=== PATIENT | female | born 1955 | race Caucasian/White ===

== ENCOUNTER 2017-05-01 13:29 | Emergency (ER) | payer OTHER ==
[~2017-05-01 13:29] MED LIST: AMLODIPINE BESYL5 M1 PO; ASPIR 8181 MG PO; COZAAR50 MG PO; HYDROCHLOROTH12.5 M2 PO; LIPI10 PO; LIPI20 PO; METFORMIN850 M1 PO; XARELTO20 M1 PO
[2017-05-01 15:51] LABS: BASOPHIL % 0.5 % (0-2); PLATELET COUNT 270 x10^3mcL (130-400); RED CELL DISTRIBUTION WIDTH 13.8 % (11.5-14.5)
[2017-05-01 15:59] LABS: CALCIUM 9.8 mg/dL (8.5-10.1); CARBON DIOXIDE 29.6 mmol/L (21-32); CHLORIDE SERUM 105 mmol/L (98-107); CREATININE SERUM 0.7 mg/dL (0.6-1.0); GFR1 > 60 mL/min; GLUCOSE SERUM 148 mg/dL (74-106); POTASSIUM SERUM 3.6 mmol/L (3.5-5.1); SODIUM SERUM 143 mmol/L (136-145)
[2017-05-01 16:05] LABS: ALBUMIN 3.7 g/dL (3.4-5.0); ALKALINE PHOSPHATASE 74 U/L (46-116); ALT/SGPT 31 U/L (14-59); AST/SGOT 15 U/L (15-37); BILIRUBIN TOTAL 0.3 mg/dL (0.20-1.00); TOTAL PROTEIN, SERUM 7.4 g/dL (6.4-8.2)
[2017-05-01 18:21] VITALS: BP 137/68
== END 2017-05-01 18:21 | disposition short-term general hospital (02) ==
LOC: ED 13:29
DX: S06.5X9A Traumatic subdural hemorrhage with loss of consciousness of unspecified duration, initial encounter (principal); I10 Essential (primary) hypertension; E11.9 Type 2 diabetes mellitus without complications; Z79.84 Long term (current) use of oral hypoglycemic drugs; X58.XXXA Exposure to other specified factors, initial encounter; Y93.89 Activity, other specified; Y99.8 Other external cause status; Y92.89 Other specified places as the place of occurrence of the external cause
CPT/HCPCS: 83880; J2405; J3010; J7030; Q0092

== ENCOUNTER 2017-06-04 13:56 | Inpatient (IN) | payer OTHER ==
[~2017-06-04] VITALS: Ht 167.6 cm; Wt 85.3 kg
[2017-06-04 15:09] LABS: BASOPHIL % 0.6 % (0-2); PLATELET COUNT 260 x10^3mcL (130-400); RED CELL DISTRIBUTION WIDTH 13.4 % (11.5-14.5)
[2017-06-04 15:58] LABS: CALCIUM 9.6 mg/dL (8.5-10.1); CARBON DIOXIDE 28.2 mmol/L (21-32); CHLORIDE SERUM 104 mmol/L (98-107); CREATININE SERUM 0.6 mg/dL (0.6-1.0); GFR1 > 60 mL/min; GLUCOSE SERUM 100 mg/dL (74-106); POTASSIUM SERUM 3.6 mmol/L (3.5-5.1); SODIUM SERUM 139 mmol/L (136-145)
[2017-06-04 16:03] LABS: ALBUMIN 3.4 g/dL (3.4-5.0); ALKALINE PHOSPHATASE 81 U/L (46-116); ALT/SGPT 27 U/L (14-59); AST/SGOT 13 U/L (15-37); BILIRUBIN TOTAL 0.21 mg/dL (0.20-1.00); TOTAL PROTEIN, SERUM 7.1 g/dL (6.4-8.2)
[2017-06-04 17:17] VITALS: BP 139/70
[2017-06-04 17:21] LABS: PHOSPHOROUS 3.6 mg/dL (2.5-4.9)
[2017-06-04 17:29] LABS: CHOLESTEROL/HDL RATIO 3.3
[2017-06-04 17:42] LABS: UA SPECIFIC GRAVITY <1.005 (1.005-1.035); microscopic required? YES
[2017-06-04 17:43] LABS: urine erythrocyte NEGATIVE (NEGATIVE)
[2017-06-04 18:24] LABS: FREE T4 1.02 ng/dL (0.76-1.46); FREE THYROXINE INDEX 2.8 ug/dL (1.4-4.5)
[2017-06-04 19:25] LABS: T3 TOTAL 1.13 ng/mL
[2017-06-04 21:06] VITALS: BP 138/73
[2017-06-05 05:33] VITALS: BP 130/60
[2017-06-05 06:12] LABS: BASOPHIL % 0.5 % (0-2); PLATELET COUNT 261 x10^3mcL (130-400); RED CELL DISTRIBUTION WIDTH 13.4 % (11.5-14.5)
[2017-06-05 07:06] LABS: CALCIUM 9.4 mg/dL (8.5-10.1); CARBON DIOXIDE 30.8 mmol/L (21-32); CHLORIDE SERUM 108 mmol/L (98-107); CREATININE SERUM 0.6 mg/dL (0.6-1.0); GFR1 > 60 mL/min; GLUCOSE SERUM 120 mg/dL (74-106); MAGNESIUM 1.9 mg/dL (1.8-2.4); PHOSPHOROUS 3.8 mg/dL (2.5-4.9); POTASSIUM SERUM 4.1 mmol/L (3.5-5.1); SODIUM SERUM 143 mmol/L (136-145)
[2017-06-05 09:26] VITALS: BP 137/73
[2017-06-05 13:42] VITALS: BP 140/80
[2017-06-05 17:11] VITALS: BP 132/69
[2017-06-05 21:35] VITALS: BP 132/64
[2017-06-06 05:17] VITALS: BP 123/58
[2017-06-06 09:25] VITALS: BP 141/71
[2017-06-06 12:40] VITALS: BP 147/85
[2017-06-06] MEDS ORDERED: LEVAQUIN750 MG PO ×2 (13:24→15:13)
[2017-06-06 14:22] VITALS: BP 147/85
[2017-06-06] MEDS ORDERED: COZ25 PO (14:26)
[2017-06-06] MEDS ORDERED: LAC PO ×2 (14:27→15:13)
[2017-06-06] MEDS ORDERED: NOR5 PO (14:27)
== END 2017-06-06 15:56 | disposition home or self-care (01) | DRG 69 ==
LOC: ED 13:56 → DU 15:52
PROVIDERS: Emergency Medicine; ADMIT Family Medicine
DX: G45.9 Transient cerebral ischemic attack, unspecified (principal); N39.0 Urinary tract infection, site not specified; I10 Essential (primary) hypertension; I48.91 Unspecified atrial fibrillation; E11.65 Type 2 diabetes mellitus with hyperglycemia; E78.1 Pure hyperglyceridemia; Z53.29 Procedure and treatment not carried out because of patient's decision for other reasons; D64.9 Anemia, unspecified; Z79.01 Long term (current) use of anticoagulants; Z79.84 Long term (current) use of oral hypoglycemic drugs; Z90.49 Acquired absence of other specified parts of digestive tract; Z79.899 Other long term (current) drug therapy; Z83.3 Family history of diabetes mellitus; Z82.49 Family history of ischemic heart disease and other diseases of the circulatory system
CPT/HCPCS: 83880; 84439; J0696; J7030; Q0092

== ENCOUNTER 2017-11-21 13:08 | Emergency (ER) | payer OTHER ==
[~2017-11-21] VITALS: Ht 170.2 cm; Wt 86.2 kg
[~2017-11-21 13:08] MED LIST changes: +COZ25 PO; +LAC PO; +LEVAQUIN750 MG PO; +NOR5 PO
[2017-11-21 13:47] VITALS: Ht 170.2 cm; Wt 86.2 kg
[2017-11-21 15:01] LABS: CALCIUM 9.4 mg/dL (8.5-10.1); CHLORIDE SERUM 102 mmol/L (98-107); CREATININE SERUM 0.7 mg/dL (0.6-1.0); GFR1 > 60 mL/min; GLUCOSE SERUM 121 mg/dL (74-106); POTASSIUM SERUM 3.6 mmol/L (3.5-5.1); SODIUM SERUM 139 mmol/L (136-145)
[2017-11-21 15:05] LABS: ALBUMIN 3.6 g/dL (3.4-5.0); ALKALINE PHOSPHATASE 73 U/L (46-116); ALT/SGPT 30 U/L (14-59); AST/SGOT 11 U/L (15-37); BASOPHIL % 0.7 % (0-2); BILIRUBIN TOTAL 0.2 mg/dL (0.20-1.00); PLATELET COUNT 268 x10^3mcL (130-400); RED CELL DISTRIBUTION WIDTH 14.1 % (11.5-14.5); TOTAL PROTEIN, SERUM 7.1 g/dL (6.4-8.2)
[2017-11-21 15:47] VITALS: BP 143/78
== END 2017-11-21 15:48 | disposition home or self-care (01) ==
LOC: ED 13:08
PROVIDERS: Emergency Medicine
DX: R51 Headache (principal); I10 Essential (primary) hypertension; E11.9 Type 2 diabetes mellitus without complications; I25.2 Old myocardial infarction; Z86.73 Personal history of transient ischemic attack (TIA), and cerebral infarction without residual deficits
CPT/HCPCS: 36415; J1885; Q0092

== ENCOUNTER 2018-11-27 03:14 | Inpatient (IN) | payer BC ==
[~2018-11-27] VITALS: Ht 167.6 cm; Wt 88.5 kg
[2018-11-27 04:13] LABS: microscopic required? NO
[2018-11-27 04:26] LABS: UA SPECIFIC GRAVITY <=1.005 (1.005-1.035); urine erythrocyte NEGATIVE (NEGATIVE)
[2018-11-27 04:45] LABS: BASOPHIL % 0.4 % (0-2); PLATELET COUNT 250 x10^3mcL (130-400); RED CELL DISTRIBUTION WIDTH 13.9 % (11.5-14.5)
[2018-11-27 05:43] LABS: CALCIUM 9.9 mg/dL (8.5-10.1); CARBON DIOXIDE 27.4 mmol/L (21-32); CHLORIDE SERUM 105 mmol/L (98-107); CREATININE SERUM 0.6 mg/dL (0.6-1.0); GFR1 > 60 mL/min; GLUCOSE SERUM 176 mg/dL (74-106); POTASSIUM SERUM 4.3 mmol/L (3.5-5.1); SODIUM SERUM 142 mmol/L (136-145)
[2018-11-27 05:55] LABS: ALBUMIN 2.8 g/dL (3.4-5.0); ALKALINE PHOSPHATASE 70 U/L (46-116); ALT/SGPT 31 U/L (14-59); AST/SGOT 19 U/L (15-37); BILIRUBIN TOTAL 0.54 mg/dL (0.20-1.00); FREE T4 1.28 ng/dL (0.76-1.46); LIPASE 76 IU/L (73-393); TOTAL PROTEIN, SERUM 6.8 g/dL (6.4-8.2)
[2018-11-27] MEDS ORDERED: GOOD SENSE ASP325 MG PO (07:00)
[2018-11-27] MEDS ORDERED: METFORMIN HCL500 MG PO (07:01)
[2018-11-27] MEDS ORDERED: OXYCODONE HCL10 MG PO (07:01)
[2018-11-27] MEDS ORDERED: COLACE100 MG PO (07:03)
[2018-11-27] MEDS ORDERED: OYSCO 500-VIT1 EACH PO (07:03)
[2018-11-27] MEDS ORDERED: TRAMADOL HCL50 MG PO (07:03)
[2018-11-27] MEDS ORDERED: VITAMIN D32000 I2 PO (07:04)
[2018-11-27] MEDS ORDERED: NOR10 PO (07:04)
[2018-11-27] MEDS ORDERED: COZAAR100 MG PO (07:04)
[2018-11-27 14:50] LABS: PHOSPHOROUS 3.1 mg/dL (2.5-4.9)
[2018-11-27 14:52] LABS: CHOLESTEROL/HDL RATIO 4.5
[2018-11-27 15:19] VITALS: BP 126/62
[2018-11-27 20:00] VITALS: BP 115/67
[2018-11-27 23:59] VITALS: BP 134/63
[2018-11-28 05:36] LABS: BASOPHIL % 0.4 % (0-2); PLATELET COUNT 246 x10^3mcL (130-400); RED CELL DISTRIBUTION WIDTH 14.3 % (11.5-14.5)
[2018-11-28 05:48] LABS: CALCIUM 9.2 mg/dL (8.5-10.1); CARBON DIOXIDE 26.6 mmol/L (21-32); CHLORIDE SERUM 103 mmol/L (98-107); CREATININE SERUM 0.6 mg/dL (0.6-1.0); GFR1 > 60 mL/min; GLUCOSE SERUM 152 mg/dL (74-106); MAGNESIUM 2.1 mg/dL (1.8-2.4); PHOSPHOROUS 2.8 mg/dL (2.5-4.9); POTASSIUM SERUM 4.1 mmol/L (3.5-5.1); SODIUM SERUM 138 mmol/L (136-145)
[2018-11-28 07:25] VITALS: BP 132/67
[2018-11-28 11:00] VITALS: BP 119/71
[2018-11-28 15:30] VITALS: BP 129/71
[2018-11-28 20:21] VITALS: BP 146/78
[2018-11-29] VITALS (7 sets, daily range): BP systolic 118–152; BP diastolic 61–72; Ht 167.6 cm; Wt 88.5 kg
[2018-11-29 05:39] LABS: BASOPHIL % 0.6 % (0-2); PLATELET COUNT 276 x10^3mcL (130-400); RED CELL DISTRIBUTION WIDTH 14.1 % (11.5-14.5)
[2018-11-29 05:40] LABS: CALCIUM 9.1 mg/dL (8.5-10.1); CHLORIDE SERUM 103 mmol/L (98-107); CREATININE SERUM 0.5 mg/dL (0.6-1.0); GFR1 > 60 mL/min; GLUCOSE SERUM 147 mg/dL (74-106); MAGNESIUM 1.8 mg/dL (1.8-2.4); PHOSPHOROUS 3.1 mg/dL (2.5-4.9); POTASSIUM SERUM 4.1 mmol/L (3.5-5.1); SODIUM SERUM 138 mmol/L (136-145)
[2018-11-30 05:51] VITALS: BP 129/62
[2018-11-30 06:10] LABS: BASOPHIL % 0.5 % (0-2); PLATELET COUNT 308 x10^3mcL (130-400)
[2018-11-30 06:37] LABS: RED CELL DISTRIBUTION WIDTH 14.6 % (11.5-14.5)
[2018-11-30 06:47] LABS: CALCIUM 9.6 mg/dL (8.5-10.1); CARBON DIOXIDE 26.1 mmol/L (21-32); CHLORIDE SERUM 102 mmol/L (98-107); CREATININE SERUM 0.6 mg/dL (0.6-1.0); GFR1 > 60 mL/min; GLUCOSE SERUM 146 mg/dL (74-106); PHOSPHOROUS 3.6 mg/dL (2.5-4.9); POTASSIUM SERUM 4.4 mmol/L (3.5-5.1); SODIUM SERUM 137 mmol/L (136-145)
[2018-11-30 08:36] LABS: microscopic required? YES; urine erythrocyte TRACE (NEGATIVE)
[2018-11-30 08:59] VITALS: BP 139/72
[2018-11-30] MEDS ORDERED: LOV80I SC (10:51)
[2018-11-30] MEDS ORDERED: COU5 PO (10:53)
[2018-11-30] MEDS ORDERED: COR200 PO (10:53)
[2018-11-30] MEDS ORDERED: AMIODARONE HCL200 MG PO (10:54)
[2018-11-30 13:22] VITALS: BP 125/60
[2018-11-30 13:57] VITALS: BP 125/60
== END 2018-11-30 16:43 | disposition home or self-care (01) | DRG 175 ==
LOC: ED 03:14 → IC 06:55 → EDBEDREQ 06:55 → DU 06:55 → IC 07:58 → DU 11-29 17:02
PROVIDERS: Emergency Medicine; General Practice; ADMIT Internal Medicine
DX: I26.99 Other pulmonary embolism without acute cor pulmonale (principal); J96.01 Acute respiratory failure with hypoxia; N17.0 Acute kidney failure with tubular necrosis; J98.11 Atelectasis; E44.0 Moderate protein-calorie malnutrition; E11.65 Type 2 diabetes mellitus with hyperglycemia; I48.0 Paroxysmal atrial fibrillation; D63.8 Anemia in other chronic diseases classified elsewhere; F41.9 Anxiety disorder, unspecified; Z96.651 Presence of right artificial knee joint; I10 Essential (primary) hypertension; I25.2 Old myocardial infarction; Z79.84 Long term (current) use of oral hypoglycemic drugs; Z86.73 Personal history of transient ischemic attack (TIA), and cerebral infarction without residual deficits; Z83.3 Family history of diabetes mellitus; Z82.49 Family history of ischemic heart disease and other diseases of the circulatory system; Z68.30 Body mass index [BMI] 30.0-30.9, adult
CPT/HCPCS: 82962; 83880; 84439; 94150; 97110-GP; 97116-GP; J0282; J1650; J1940; J2270; J3490; J7030; Q0092; Q9967

== ENCOUNTER 2018-12-04 01:04 | Emergency (ER) | payer BC ==
[~2018-12-04] VITALS: Ht 167.6 cm; Wt 84.4 kg
[~2018-12-04 01:04] MED LIST changes: +AMIODARONE HCL200 MG PO; +COLACE100 MG PO; +COR200 PO; +COU5 PO; +COZAAR100 MG PO; +GOOD SENSE ASP325 MG PO; +LOV80I SC; +METFORMIN HCL500 MG PO; +NOR10 PO; +OXYCODONE HCL10 MG PO; +OYSCO 500-VIT1 EACH PO; +TRAMADOL HCL50 MG PO; +VITAMIN D32000 I2 PO
[2018-12-04 01:07] VITALS: Ht 167.6 cm; Wt 84.4 kg
[2018-12-04 02:26] LABS: BASOPHIL % 0.3 % (0-2); PLATELET COUNT 340 x10^3mcL (130-400)
[2018-12-04 02:28] LABS: RED CELL DISTRIBUTION WIDTH 14.6 % (11.5-14.5)
[2018-12-04 02:44] LABS: CALCIUM 9.6 mg/dL (8.5-10.1); CHLORIDE SERUM 102 mmol/L (98-107); CREATININE SERUM 0.6 mg/dL (0.6-1.0); GFR1 > 60 mL/min; GLUCOSE SERUM 147 mg/dL (74-106); POTASSIUM SERUM 4.2 mmol/L (3.5-5.1); SODIUM SERUM 137 mmol/L (136-145)
[2018-12-04 02:49] LABS: ALKALINE PHOSPHATASE 74 U/L (46-116); ALT/SGPT 38 U/L (14-59); AST/SGOT 22 U/L (15-37); BILIRUBIN TOTAL 0.46 mg/dL (0.20-1.00); LIPASE 71 IU/L (73-393); TOTAL PROTEIN, SERUM 6.7 g/dL (6.4-8.2)
[2018-12-04 02:53] LABS: ALBUMIN 2.8 g/dL (3.4-5.0)
[2018-12-04 04:17] VITALS: BP 125/70
== END 2018-12-04 04:17 | disposition home or self-care (01) ==
LOC: ED 01:04
PROVIDERS: Emergency Medicine
DX: R07.89 Other chest pain (principal); I10 Essential (primary) hypertension; E11.9 Type 2 diabetes mellitus without complications; Z86.73 Personal history of transient ischemic attack (TIA), and cerebral infarction without residual deficits; Z98.890 Other specified postprocedural states
CPT/HCPCS: 36415; Q0092

== ENCOUNTER 2019-10-14 13:36 | Emergency (ER) | payer BC ==
[~2019-10-14] VITALS: Ht 170.2 cm; Wt 89.8 kg
[2019-10-14 13:40] VITALS: Ht 170.2 cm; Wt 89.8 kg
[2019-10-14 14:36] LABS: BASOPHIL % 0.4 % (0-2); PLATELET COUNT 274 x10^3mcL (130-400); RED CELL DISTRIBUTION WIDTH 13.6 % (11.5-14.5)
[2019-10-14 15:04] LABS: ALBUMIN 3.8 g/dL (3.4-5.0); ALKALINE PHOSPHATASE 88 U/L (46-116); ALT/SGPT 52 U/L (14-59); AST/SGOT 17 U/L (15-37); BILIRUBIN TOTAL 0.3 mg/dL (0.20-1.00); CARBON DIOXIDE 31.8 mmol/L (21-32); CREATININE SERUM 0.7 mg/dL (0.6-1.0); GFR1 > 60 mL/min; GLUCOSE SERUM 115 mg/dL (74-106); TOTAL PROTEIN, SERUM 7.4 g/dL (6.4-8.2)
[2019-10-14 15:13] VITALS: BP 144/69
[2019-10-14 15:48] LABS: CHLORIDE SERUM 97 mmol/L (98-107); POTASSIUM SERUM 3.9 mmol/L (3.5-5.1); SODIUM SERUM 133 mmol/L (136-145)
== END 2019-10-14 15:27 | disposition home or self-care (01) ==
LOC: ED 13:36
PROVIDERS: Specialist
DX: F43.20 Adjustment disorder, unspecified (principal); I10 Essential (primary) hypertension; E11.9 Type 2 diabetes mellitus without complications; Z98.890 Other specified postprocedural states
CPT/HCPCS: 36415

== ENCOUNTER 2020-11-14 19:51 | Emergency (ER) | payer BC ==
[~2020-11-14] VITALS: Ht 170.2 cm; Wt 90.7 kg
[2020-11-14 20:04] VITALS: Ht 170.2 cm; Wt 90.7 kg
[2020-11-14 23:04] VITALS: BP 137/84
== END 2020-11-14 23:04 | disposition home or self-care (01) ==
LOC: ED 19:51
DX: H81.10 Benign paroxysmal vertigo, unspecified ear (principal); I11.0 Hypertensive heart disease with heart failure; I50.9 Heart failure, unspecified; E11.9 Type 2 diabetes mellitus without complications; I25.2 Old myocardial infarction; Z98.890 Other specified postprocedural states
CPT/HCPCS: J8597; Q0162